=== PATIENT | female | born 1995 | race American Indian/Alaskan Native ===

== ENCOUNTER 2017-10-23 15:54 | Emergency (ER) | payer MEDICAID ==
[2017-10-23 16:26] LABS: Basophils % (Auto) 0.4 % (0.0-1.8); Eosinophils % (Auto) 0.2 % (0.0-4.3); Hematocrit 32.9 % (30.3-42.9); Hemoglobin 11.3 gm/dl (10.1-14.3); Lymphocytes # (Auto) 2.3 K/mm3 (1.2-5.4); Lymphocytes % (Auto) 25.7 % (13.4-35.0); Mean Corpuscular HGB Conc 35 % (30-34); Mean Corpuscular Hemoglobin 31 pg (28-32); Mean Corpuscular Volume 88 fl (79-97); Monocytes # (Auto) 0.6 K/mm3 (0.0-0.8); Monocytes % (Auto) 6.5 % (0.0-7.3); Platelet Count 263 K/mm3 (140-440); Red Blood Count 3.73 M/mm3 (3.65-5.03); Red Cell Distribution Width 13.8 % (13.2-15.2)
[2017-10-23 16:55] LABS: Bacteria,Urine 1+ /HPF (Negative); Bilirubin,Urine NEG (Negative); Blood,Urine LG (Negative); Color,Urine Yellow (Yellow); Protein,Urine <15 mg/dL mg/dL (Negative); Urobilinogen,Urine < 2.0 mg/dL (<2.0)
--- NOTE | 2017-10-23 17:00 | Emergency Department Report ---
ED General Adult HPI - General Chief complaint: Vaginal Bleeding Stated complaint: MOLAR Time Seen by Provider: 10/23/17 16:24 Source: patient, RN notes reviewed, old records reviewed Mode of arrival: Ambulatory Limitations: No Limitations - History of Present Illness Initial comments: This is a 21-year-old female who was not known to this provider previously. Her last menstrual period is August 13. She is 4, para 1. She reports an outpatient ultrasound in another hospital has demonstrated a molar . She presents to the ER with painless vaginal bleeding. She is using a few pads a day. She denies headache, neck pain, chest pain, abdominal pain, shortness of breath, obstructive/irritative urinary symptoms. Her bleeding is intermittent, painless, does not radiate anywhere, does not have exacerbating or relieving factors. -: Gradual Severity scale (0 -10): 0 Quality: other Consistency: other Improves with: other Worsens with: other Associated Symptoms: other. denies: confusion, chest pain, cough, diaphoresis, fever/chills, headaches, loss of appetite, malaise, nausea/vomiting, rash, seizure, shortness of breath, syncope, weakness - Related Data Previous Rx's Medication Instructions Recorded Last Taken Type Ibuprofen [Motrin] 600 mg PO Q8H PRN #60 tablet 01/12/15 Unknown Rx methOCARBAMOL [Robaxin TAB] 500 mg PO BID #10 tab 01/12/15 Unknown Rx traMADol [Ultram] 50 mg PO Q6HR PRN #14 tablet 01/12/15 Unknown Rx Allergies Allergy/AdvReac Type Severity Reaction Status Date / Time onions Allergy Rash Uncoded 11/23/13 18:32 ED Review of Systems ROS: Stated complaint: MOLAR Other details as noted in HPI Comment: All other systems reviewed and negative ED Past Medical Hx - Past Medical History Previous Medical History?: Yes Hx Asthma: Yes (child last issues was > 5 years ago) - Surgical History Past Surgical History?: Yes Additional Surgical History: hernia repair. right eye surgery - Social History Smoking Status: Never Smoker Substance Use Type: None - Medications Home Medications: Home Medications Medication Instructions Recorded Confirmed Last Taken Type Ibuprofen [Motrin] 600 mg PO Q8H PRN #60 tablet 01/12/15 Unknown Rx methOCARBAMOL [Robaxin TAB] 500 mg PO BID #10 tab 01/12/15 Unknown Rx traMADol [Ultram] 50 mg PO Q6HR PRN #14 tablet 01/12/15 Unknown Rx ED Physical Exam - General Limitations: No Limitations General appearance: alert, in no apparent distress - Head Head exam: Present: atraumatic, normocephalic - Eye Eye exam: Present: normal appearance, EOMI. Absent: nystagmus - ENT ENT exam: Present: normal exam, normal orophraynx, mucous membranes moist, normal external ear exam - Neck Neck exam: Present: normal inspection, full ROM. Absent: tenderness, meningismus - Respiratory Respiratory exam: Present: normal lung sounds bilaterally. Absent: respiratory distress - Cardiovascular Cardiovascular Exam: Present: regular rate, normal rhythm, normal heart sounds. Absent: bradycardia, tachycardia, irregular rhythm, systolic murmur, diastolic murmur, rubs, gallop - GI/Abdominal GI/Abdominal exam: Present: soft, normal bowel sounds. Absent: distended, tenderness, guarding, rebound, rigid, pulsatile mass - Extremities Exam Extremities exam: Present: normal inspection, full ROM, normal capillary refill , other (2+ pulses noted in the bilateral upper, lower extremities. Compartments soft. No long bony tenderness. The pelvis is stable.). Absent: tenderness, pedal edema, joint swelling, calf tenderness - Back Exam Back exam: Present: normal inspection, full ROM. Absent: tenderness, CVA tenderness (R), paraspinal tenderness, vertebral tenderness - Neurological Exam Neurological exam: Present: alert, oriented X3, CN II-XII intact, normal gait, other (Extraocular movements intact. Tongue midline. No facial droop. Facial sensation intact to light touch in the V1, V2, V3 distribution bilaterally. 5 and 5 strength in 4 extremities.. Sensation is intact to light touch in 4 extremities.). Absent: motor sensory deficit - Psychiatric Psychiatric exam: Present: normal affect, normal mood - Skin Skin exam: Present: warm, dry, intact, normal color. Absent: rash ED Course Vital Signs 10/23/17 10/23/17 10/23/17 16:00 16:45 18:47 Temperature 98.3 F Pulse Rate 96 H Respiratory 16 16 Rate Blood Pressure 123/80 Blood Pressure 126/76 [Left] O2 Sat by Pulse 100 100 Oximetry ED Medical Decision Making - Lab Data Result diagrams: 10/23/17 16:08 Vital Signs 10/23/17 10/23/17 10/23/17 16:00 16:45 18:47 Temperature 98.3 F Pulse Rate 96 H Respiratory 16 16 Rate Blood Pressure 123/80 Blood Pressure 126/76 [Left] O2 Sat by Pulse 100 100 Oximetry Lab Results 10/23/17 10/23/17 10/23/17 Range/Units 16:08 16:08 16:15 WBC 8.8 (4.5-11.0) K/mm3 RBC 3.73 (3.65-5.03) M/mm3 Hgb 11.3 (10.1-14.3) gm/dl Hct 32.9 (30.3-42.9) % MCV 88 (79-97) fl MCH 31 (28-32) pg MCHC 35 H (30-34) % RDW 13.8 (13.2-15.2) % Plt Count 263 (140-440) K/mm3 Lymph % (Auto) 25.7 (13.4-35.0) % [place] % (Auto) 6.5 (0.0-7.3) % Eos % (Auto) 0.2 (0.0-4.3) % Baso % (Auto) 0.4 (0.0-1.8) % Lymph # 2.3 (1.2-5.4) K/mm3 [place] # 0.6 (0.0-0.8) K/mm3 Eos # 0.0 (0.0-0.4) K/mm3 Baso # 0.0 (0.0-0.1) K/mm3 Seg Neutrophils % 67.2 (40.0-70.0) % Seg Neutrophils # 5.9 (1.8-7.7) K/mm3 HCG, Quant 516238 H (0-4) mIU/mL Urine Color Yellow (Yellow) Urine Turbidity Slightly-cloudy (Clear) Urine pH 7.0 (5.0-7.0) Ur Specific [place] 1.006 (1.003-1.030) Urine Protein <15 mg/dl (Negative) mg/dL Urine Glucose (UA) Neg (Negative) mg/dL Urine Ketones Neg (Negative) mg/dL Urine Blood Lg (Negative) Urine Nitrite Neg (Negative) Urine Bilirubin Neg (Negative) Urine Urobilinogen < 2.0 (<2.0) mg/dL Ur Leukocyte Esterase Lg (Negative) Urine WBC (Auto) 12.0 H (0.0-6.0) /HPF Urine RBC (Auto) 3.0 (0.0-6.0) /HPF U Epithel Cells (Auto) 7.0 (0-13.0) /HPF Urine Bacteria (Auto) 1+ (Negative) /HPF Blood Type Antibody Screen 10/23/17 Range/Units 16:18 WBC (4.5-11.0) K/mm3 RBC (3.65-5.03) M/mm3 Hgb (10.1-14.3) gm/dl Hct (30.3-42.9) % MCV (79-97) fl MCH (28-32) pg MCHC (30-34) % RDW (13.2-15.2) % Plt Count (140-440) K/mm3 Lymph % (Auto) (13.4-35.0) % [place] % (Auto) (0.0-7.3) % Eos % (Auto) (0.0-4.3) % Baso % (Auto) (0.0-1.8) % Lymph # (1.2-5.4) K/mm3 [place] # (0.0-0.8) K/mm3 Eos # (0.0-0.4) K/mm3 Baso # (0.0-0.1) K/mm3 Seg Neutrophils % (40.0-70.0) % Seg Neutrophils # (1.8-7.7) K/mm3 HCG, Quant (0-4) mIU/mL Urine Color (Yellow) Urine Turbidity (Clear) Urine pH (5.0-7.0) Ur Specific [place] (1.003-1.030) Urine Protein (Negative) mg/dL Urine Glucose (UA) (Negative) mg/dL Urine Ketones (Negative) mg/dL Urine Blood (Negative) Urine Nitrite (Negative) Urine Bilirubin (Negative) Urine Urobilinogen (<2.0) mg/dL Ur Leukocyte Esterase (Negative) Urine WBC (Auto) (0.0-6.0) /HPF Urine RBC (Auto) (0.0-6.0) /HPF U Epithel Cells (Auto) (0-13.0) /HPF Urine Bacteria (Auto) (Negative) /HPF Blood Type O POSITIVE Antibody Screen Negative - Radiology Data Radiology results: image reviewed interpreted by me: As per discussion with e commerce developer pre certification specialist, Dr. Ermelinda Alfredo, ultrasound was consistent with a 16 week molar . Secondary to technical issues, we are still waiting for formal radiology interpretation - Medical Decision Making Differential diagnosis, including but not limited to: Molar , ectopic , miscarriage Assessment and plan: 21-year-old female with reported outpatient sonographically confirmed molar . She is afebrile with reassuring vital signs and no abdominal tenderness, rebound or guarding. Her quantitative hCG is over 400,000, and the consulting PLASTIC AND RECONSTRUCTIVE SURGEON doctor, Dr. Alfredo, has personally reviewed the patient's ultrasound and indicates that is consistent with molar . His plan is to have the patient return on Thursday for direct admit for dilatation and curettage. The patient was observed in the ER for hours without clinical decompensation. She is going to follow-up on Thursday. Return precautions reviewed. Critical care attestation.: If time is entered above; I have spent that time in minutes in the direct care of this critically ill patient, excluding procedure time. ED Disposition Clinical Impression: Molar Disposition: DC-01 TO HOME OR SELFCARE Is pt being admited?: No Does the pt Need Aspirin: No Condition: Stable Instructions: Threatened Miscarriage (ED) Additional Instructions: Rest, and avoid heavy lifting. Avoid strenuous physical activities. Do not have sex. Return to the ER on Thursday, at 3:00 PM, presents yourself to ER registration, and tell them that you are here to be a direct admit under Dr. Alfredo's service for dilatation and curettage. Return to the ER right away with new pain, worsening pain, migration of pain, projectile vomiting, change in mental status, confusion, sudden bleeding, bleeding more than 2 pads soaked per hour, lightheadedness, loss of consciousness. Referrals: PRIMARY CARE, [Primary Care Provider] - 3-5 Days BETO ALFREDO MD [Staff Physician] - 3-5 Days
[2017-10-23 18:47] VITALS: BP 126/76
--- NOTE | 2017-10-23 19:03 | History and Physical Report ---
History of Present Illness Date of examination: 10/23/17 Chief complaint: Suspected Molar x 5 days History of present illness: 21-year-old who presents with oral history of possible molar . Essential history is patient was seen at [facility] on Thursday last week for vaginal bleeding and passing chunks of blood. Beta history G-tube was drawn and she was informed she might be miscarrying, asked to return 48 hours later. She returned again on Thursday and was informed that her beta hCG was still increase in, she was advised to follow-up with her primary care physician. She presented today from the clinic. Her beta hCGs is over 400,000 and ultrasound shows ~ 16 week size likely molar . She is spotting at this time and her hemoglobin and hematocrit is stable Past History Past Medical History: no pertinent history Past Surgical History: no surgical history TAKER OFF History: denies: cancer, chlamydia, gonorrhea, hepatitis B, hepatitis C, herpes, HIV, syphilis, trichomonas Social history: single, full code. denies: smoking, IV drug use Medications and Allergies Allergies Allergy/AdvReac Type Severity Reaction Status Date / Time onions Allergy Rash Uncoded 11/23/13 18:32 Home Medications Medication Instructions Recorded Confirmed Last Taken Type Ibuprofen [Motrin] 600 mg PO Q8H PRN #60 tablet 01/12/15 Unknown Rx methOCARBAMOL [Robaxin TAB] 500 mg PO BID #10 tab 01/12/15 Unknown Rx traMADol [Ultram] 50 mg PO Q6HR PRN #14 tablet 01/12/15 Unknown Rx Review of Systems Constitutional: no fever, no chills, no fatigue Eyes: no blurred vision, no diplopia, no discharge Cardiovascular: no chest pain, no orthopnea, no palpitations, no syncope, no lightheadedness, no shortness of breath, no dyspnea on exertion, no paroxysmal nocturnal dyspnea, no high blood pressure Respiratory: no cough, no shortness of breath, no dyspnea on exertion Gastrointestinal: no abdominal pain, no nausea, no vomiting Genitourinary: vaginal bleeding (spotting), no vaginal discharge - Vital Signs Vital signs: Vital Signs Temp Pulse Resp BP Pulse Ox 98.3 F 96 H 16 123/80 100 10/23/17 16:00 10/23/17 16:00 10/23/17 16:00 10/23/17 16:00 10/23/17 16:00 Temp Pulse Resp BP Pulse Ox 98.3 F 96 H 16 126/76 100 10/23/17 16:00 10/23/17 16:00 10/23/17 16:45 10/23/17 18:47 10/23/17 16:45 - Physical Exam Abdomen: Positive: normal appearance, soft. Negative: distention, tenderness, guarding, rigidity Genitourinary (Female): Positive: normal external genitalia Results Result Diagrams: 10/23/17 16:08 Abnormal lab results 10/23/17 10/23/17 10/23/17 Range/Units 16:08 16:08 16:15 MCHC 35 H (30-34) % HCG, Quant [id number] H (0-4) mIU/mL Urine WBC (Auto) 12.0 H (0.0-6.0) /HPF All other labs normal. Assessment and Plan A: 21-year-old with ~ 16 wk size molar -Stable P: -Due to vascular nature of molar , feel preoperative placement of arterial stents/balloons is appropriate. I discussed with Dr. Ackerman of interventional radiology, plan is to admit the patient Thursday night. She will then have procedure performed in the vascular lab and then taken to the OR for D &C -Discussed above in detail with the patient -Discussed need for follow-up, she is aware of need to follow her labs weekly for 3 weeks after it is negative, then monthly for about 6 months. -Discussed need to return to the ER [facility] if heavy bleeding should occur - Patient Problems (1) Molar Current Visit: Yes Status: Acute
--- NOTE | 2017-10-23 20:33 | Ultrasound Report ---
FINAL REPORT PROCEDURE: Transabdominal obstetrical ultrasound. TECHNIQUE: Real-time transabdominal sonography of the uterus, placenta, amniotic fluid, adnexa, and fetus was performed with image documentation. Measurements were obtained to determine age/size. M-mode Doppler was used to document heartbeat. CPT 96682 HISTORY: , previous vaginal bleeding. COMPARISON: No prior studies are available for comparison. FINDINGS: The uterus measures 16.7 centimeters x 9.3 centimeters x 11.0 centimeters. The myometrium appears thin. The endometrium is filled with a solid mass with numerous cystic areas. The solid mass measures 7.5 centimeters in thickness. There are no signs of a normal gestational sac. The findings are consistent with a hydatidiform mole. Given the apparent thinness of the myometrium, an invasive mole is not excluded. There is a tiny amount of fluid within the endocervical canal. The right ovary appears normal in size and demonstrates normal color flow. There is a small hypoechoic mass in the right ovary measuring 1.7 centimeters in maximum dimension. The left ovary appears normal. There is normal color flow in the left ovary. IMPRESSION: Hydatidiform mole. Invasive molar not excluded. Probable small right ovarian corpus luteum.
--- NOTE | 2017-10-23 20:36 | Ultrasound Report ---
FINAL REPORT PROCEDURE: Transvaginal obstetrical ultrasound. TECHNIQUE: Real-time transvaginal sonography of the uterus, placenta, amniotic fluid, adnexa, and fetus was performed with image documentation. Measurements were obtained to determine age/size. M-mode Doppler was used to document heartbeat. CPT 68448 HISTORY: , vaginal bleeding. COMPARISON: No prior studies are available for comparison. FINDINGS: The myometrium echogenicity appears uniform. The myometrium thickness appears thin however. There is a solid complex mass within the endometrial cavity. This mass is predominantly solid tissue but contains small cystic areas. There is no evidence of an intrauterine gestational sac. 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 An invasive mole is possible. There is a small amount of fluid in the endocervical canal. Both ovaries appear normal in size. There is a small complex cyst in the right ovary consistent with a corpus luteum. There is no fluid in the cul-de-sac. IMPRESSION: Gestational trophoblastic disease as described.
== END 2017-10-23 20:30 | disposition home or self-care (01) ==
LOC: ED 15:54
DX: O02.0 Blighted ovum and nonhydatidiform mole (principal); J45.909 Unspecified asthma, uncomplicated; Z3A.16 16 weeks gestation of pregnancy
CPT/HCPCS: 36415; 76801; 76817; 81001; 84702; 85025; 86850; 86900; 86901

== ENCOUNTER 2017-10-23 19:23 | Observation (INO) | payer MEDICAID ==
[2017-10-23] MEDS ORDERED: MOTRIN PO PRN (19:48)
[2017-10-23] MEDS ORDERED: SODIUM CHLORIDE FLUSH SYRINGE 10 ML IV PRN (19:48)
[2017-10-23] MEDS ORDERED: ZOFRAN IV PRN (19:48)
[2017-10-23] MEDS ORDERED: TYLENOL PO PRN (19:48)
[2017-10-23] MEDS ORDERED: PHENERGAN PR PRN (19:48)
[2017-10-23] MEDS ORDERED: NACL 0.9% 500 ML 500 ML IV SCH (19:54)
[2017-10-23] MEDS ORDERED: NACL 0.9% 1000 ML 1,000 ML IV SCH (20:00)
[2017-10-23] MEDS ORDERED: SENOKOT PO SCH (22:00)
[2017-10-23] MEDS ORDERED: SODIUM CHLORIDE FLUSH SYRINGE 10 ML IV SCH (22:00)
[2017-10-26] MEDS ORDERED: CYTOTEC PR ONE
[2017-10-26] MEDS ORDERED: ZEMURON IV ONE (09:11)
[2017-10-26] MEDS ORDERED: XYLOCAINE MPF 2% ONE (09:11)
[2017-10-26] MEDS ORDERED: QUELICIN ONE (09:11)
[2017-10-26] MEDS ORDERED: DIPRIVAN 10 MG/ML IV ONE (09:12)
[2017-10-26] MEDS ORDERED: DILAUDID ONE (09:12)
--- NOTE | 2017-10-26 09:22 | History and Physical Report ---
History of Present Illness Date of examination: 10/26/17 Date of admission: 10/25/17 16:49 Chief complaint: scheduled surgery for suspected molar History of present illness: 21yo 11wks 5/7days presents for management of suspected molar with suction D&C. Her uterus is enlarged at 16cm and betaHCG >43K. She was previously followed by Emiliana Telles and Dr. Diaz, [facility]. The recommendation to preoperatively undergoe occlusion of bilateral internal illiac arteries was made and Dr. Ackerman will perform procedure. Today she has no complaints. She was admitted overnight and is NPO. She has been type and cross matched for 2 units of pack red blood cells. She has been consented for suction D&C and all of her questions have been answered. She is aware of the risk of invasive carcinoma and need for close follow-up. Past History Past Medical History: other (missed ) Past Surgical History: other (dental surgery, D&C) Family/Genetic History: none Social history: single - Obstetrical History Expected Date of Delivery: 05/12/18 Actual Gestation: 11 Week(s) 5 Day(s) : 3 Hx # Term Pregnancies: 1 Medications and Allergies Allergies Allergy/AdvReac Type Severity Reaction Status Date / Time onions Allergy Rash Uncoded 11/23/13 18:32 Home Medications Medication Instructions Recorded Confirmed Last Taken Type Ibuprofen [Motrin] 600 mg PO Q8H PRN #60 tablet 01/12/15 10/25/17 Unknown Rx methOCARBAMOL [Robaxin TAB] 500 mg PO BID #10 tab 01/12/15 10/25/17 Unknown Rx traMADol [Ultram] 50 mg PO Q6HR PRN #14 tablet 01/12/15 10/25/17 Unknown Rx Active Meds: Active Medications Acetaminophen (Tylenol) 650 mg PO Q4H PRN PRN Reason: Pain MILD(1-3)/Fever >100.5/COOK Sodium Chloride (Nacl 0.9% 1000 Ml) 1,000 mls @ 125 mls/hr IV DIRECT LINDSEY Ibuprofen (Motrin) 600 mg PO Q6H PRN PRN Reason: Pain, Mild (1-3) Ondansetron HCl (Zofran) 4 mg IV Q8H PRN PRN Reason: Nausea And Vomiting Promethazine HCl (Phenergan) 25 mg OK Q6H PRN PRN Reason: N/V IF NPO AND NO IV ACCESS Senna (Senokot) 8.6 mg PO Q12HR LINDSEY Sodium Chloride (Sodium Chloride Flush Syringe 10 Ml) 10 ml IV BID LINDSEY Sodium Chloride (Sodium Chloride Flush Syringe 10 Ml) 10 ml IV PRN PRN PRN Reason: LINE FLUSH - Vital Signs Vital signs: Vital Signs Temp Pulse Resp BP Pulse Ox 98.5 F 82 18 130/77 100 10/25/17 19:11 10/25/17 19:11 10/25/17 19:11 10/25/17 19:11 10/25/17 19:11 Temp Pulse Resp BP Pulse Ox 98.9 F 79 16 114/60 100 10/26/17 04:55 10/26/17 04:55 10/26/17 04:55 10/26/17 04:55 10/25/17 19:11 Results Abnormal lab results 10/23/17 Range/Units 23:10 Crossmatch See Detail All other labs normal. Assessment and Plan - Patient Problems (1) Molar Current Visit: No Status: Acute Plan to address problem: 1. Routine pre-op labs. 2. Type and crossed for 2units packed red blood cells 3. Doxycycline for infection prophylaxis. 4. SCDs for DVT prophylaxis. 5. Plan to proceed to Suction D&C. Risks including but not limited to risk of bleeding, infection, uterine perforation, need for blood transfusion, exploratory laparotomy or hysterectomy. The patient was made aware a hysterectomy would render her unable to bear future children. All questions were answered and informed consent signed.
--- NOTE | 2017-10-26 09:28 | Anesthesia Consultation ---
<BRIDGETTE MEIER - Last Filed: 10/26/17 09:26> Anesthesia Consult and Med Hx Date of service: 10/26/17 (After balloon of bilateral iliacs in IR) - Airway Anesthetic Teeth Evaluation: Good ROM Head & Neck: Adequate Mental/Hyoid Distance: Adequate Mallampati Class: Class I Intubation Access Assessment: Probably Good - Pulmonary Exam CTA: Yes - Cardiac Exam Cardiac Exam: RRR - Pre-Operative Health Status ASA Pre-Surgery Classification: ASA1, ASA2 Proposed Anesthetic Plan: General - Pulmonary Hx Smoking: Yes Hx Asthma: Yes (child last issues was > 5 years ago) COPD: No Hx Pneumonia: No - Cardiovascular System Hx Hypertension: No Hx Cardia Arrhythmia: No - Central Nervous System Hx Neuromuscular Disorder: No - Gastrointestinal Hx Gastroesophageal Reflux Disease: No - Endocrine Hx End Stage Renal Disease: No Hx Liver Disease: No - Hematic Hx Sickle Cell Disease: No - Other Systems Hx Alcohol Use: No Hx Substance Use: No - Additional Comments Anesthesia Medical History Comments: No GAC, No FHAC <CLIFFORD BARILLAS - Last Filed: 10/26/17 09:39> Anesthesia Consult and Med Hx Date of service: 10/26/17 (after internal iliac artery occlusion in IR) - Pre-Operative Health Status ASA Pre-Surgery Classification: ASA2 - Pulmonary Hx Asthma: Yes (childhood, last issue was > 5 years ago) - Additional Comments Anesthesia Medical History Comments: Presenting with molar preganancy (uterine size 16wk). Plan for preop internal iliac artery embolization in IR. 2 units pRBCs available.
--- NOTE | 2017-10-26 09:37 | Anesthesia Day of Surgery ---
Anesthesia Day of Surgery - Day of Surgery Patient Examined: Yes Patient H&P Reviewed: Yes Patient is NPO: Yes
[2017-10-26] MEDS ORDERED: DILAUDID IV PRN (09:39)
[2017-10-26] MEDS ORDERED: HEPARIN 10,000 UNITS/10 ML ONE (10:00)
[2017-10-26] MEDS ORDERED: METHERGINE IM ONE ×3 (10:00→10:47)
[2017-10-26] MEDS ORDERED: NEO SYNEPHRINE/NS Syringe(OR USE) IV ONE (10:00)
[2017-10-26] MEDS ORDERED: HEPARIN/NS 5000 UNIT/500ML(CATH LAB) 1,000 ML IR ONE (10:00)
[2017-10-26] MEDS ORDERED: SUBLIMAZE ONE ×2 (10:01→11:52)
[2017-10-26] MEDS ORDERED: VERSED ONE (10:01)
[2017-10-26] MEDS ORDERED: CALAN ONE (10:02)
[2017-10-26] MEDS ORDERED: NITROGLYCERIN SYRINGE 0 ML ONE (10:02)
[2017-10-26] MEDS ORDERED: NACL 0.9% 1000 ML 4,000 ML ONE (10:15)
[2017-10-26] MEDS ORDERED: NACL 0.9% 500 ML 500 ML ONE (10:15)
[2017-10-26] MEDS: XYLOCAINE 2% INFILTRATI ONE ×2 (10:30→10:34)
[2017-10-26] MEDS ORDERED: CYTOTEC PR NR (11:00)
[2017-10-26] MEDS ORDERED: METHERGINE IM NR (11:00)
[2017-10-26] MEDS ORDERED: DECADRON ONE (11:52)
[2017-10-26] MEDS ORDERED: ZOFRAN ONE (11:53)
[2017-10-26] MEDS ORDERED: DOXYCYCLINE HYCLATE 200 MG in NACL 0.9% 250ML 250 ML IV ONE (12:00)
[2017-10-26] MEDS ORDERED: NARCAN 0.4 MG/1 ML IV PRN (12:38)
[2017-10-26] MEDS ORDERED: PERCOCET 5/325 PO PRN (12:38)
--- NOTE | 2017-10-26 12:55 | Operative Report ---
Operative Report Operative Report: PREOP Diagnosis 1. Suspected molar 2. 16 week uterus 3. Chronic anemia Postop Diagnosis 1. Suspected molar 2. 16 week uterus 3. Chronic anemia Procedure: 1. Suction D&C 2. Intra-op pelvic ultrasound Findings 1. Anteverted 16 week uterus 2. Ultrasound revealed Intrauterine products with no pole present 3. Uterus with visible endometrial stripe at close of case. Surgeon 1. Brittayn Galarza MD Anesthesia: 1. General I/O: EBL: 1100ml (3 suction cannisters and 200 ml in sterile bag UOP 20ml Specimens removed: 1. Products of conception, suspected molar Complications: none Disposition: Patient taken to recovery room in stable condition INDICATIONS: The patient is a 21yo 11weeks 5/7 days by LMP with 16 weeks uterus and suspected molar on ultrasound. A detailed discussion was had with patient concerning the need for uterine evacuation and the potential for an invasive mole diagnosed post-operativeily. The patient was consented and the risks including but not limited to bleeding, infection, injury to surrounding organs, uterine perforation, need for blood transfusion or hysterectomy were discussed and informed consent signed. All questions were answered. A pre- operative catherization of the internal iliac arteries was performed by intervention radiology in anticipation of increased uterine bleeding due to the size of the uterus and molar . PROCEDURE: The patient was transferred from the cath lab radiology technician to OR. She wore SCDs for DVT prophylaxis. The patient was prepped and draped in the usual fashion and an additional time out was done. She received Doxycycline for infection prophylaxis. Adequate anesthesia was achieved via general anesthesia. A anthony catheter was placed noting a small amount of clear urine. A sterile speculum was placed per vagina and the anterior lip of the cervix was grasped with a single-toothed tenaculum. Lopez dilators were used to dilate the uterus up to 41 Frisian. A #14 curette was unable to pass intracervically therefore a #12 curette was passed. Multiple passes of the suction curette under ultrasound guidance were passed and tissue collected. A #3 sharp curette was used to do a sharp curette and all quadrants were noted to be gritty. Tenaculum was removed from the cervix, speculum removed and bimanual exam performed. Uterus was noted to be firm. Cytotec 1000mcg was placed per rectum and Methergine 0.2mg IM was administered. Dr. Dick then arrived in the OR to remove the bilateral stents. The patient is to remain supine for two hours post-op. All counts were correct. Anthony catheter was removed. I was present and scrubbed for the entire procedure. The patient tolerated the procedure well and was taken to the recovery room.
--- NOTE | 2017-10-26 13:07 | Ultrasound Report ---
ULTRASOUND-GUIDED INTRAOPERATIVE History: Molar , guidance for D&C. Findings: 12 transabdominal grayscale ultrasound images are presented during D&C of a molar by FARM HELPER. Please correlate with the procedural report as needed. Impression: Successful ultrasound guidance for D&C for molar by FARM HELPER.
[2017-10-26 13:49] LABS: Hematocrit 28.1 % (30.3-42.9); Hemoglobin 9.5 gm/dl (10.1-14.3); Mean Corpuscular HGB Conc 34 % (30-34); Mean Corpuscular Hemoglobin 30 pg (28-32); Mean Corpuscular Volume 89 fl (79-97); Platelet Count 224 K/mm3 (140-440); Red Blood Count 3.15 M/mm3 (3.65-5.03); Red Cell Distribution Width 13.6 % (13.2-15.2)
--- NOTE | 2017-10-26 14:50 | Post Anesthesia Evaluation ---
- Post Anesthesia Evaluation Patient Participated: Yes Airway Patent: Yes Stable Respiratory Function: Yes Nausea/Vomiting: No Temp > 96.8F: Yes Pain Manageable: Yes Adequeate Hydration: Yes Anesthesia Complications: No Other Comments: Post-op Hb 9.5. HD stable at preop baseline.
--- NOTE | 2017-10-26 15:26 | Operative Report ---
Operative Report Operative Report: Exam: Ultrasound and fluoroscopic guided placement of bilateral iliac artery occlusion balloons Clinical indication: Patient with a history of a molar and a planned D &C Date: 10/26/2017 Procedure: Following an excellent addition of the risks, benefits and alternatives; written informed consent was obtained. The patient was brought the angiographic suite and placed in supine position on the examination table. Initial ultrasound evaluation of her right groin demonstrated a patent right common femoral artery. Initial ultrasound of the left groin demonstrated a patent left common femoral artery. The patient's bilateral groins were prepped and draped in the usual sterile fashion. 1% lidocaine was used for anesthesia. Under ultrasound guidance, the right common femoral artery was cannulated with a 7 cm 21-gauge needle. A 0.018 guidewire was advanced centrally. The needle was removed and a micro-sheath placed. The 0.018 guidewire was exchanged for a 0.035 guidewire and the micro-sheath exchanged for a 6 [place] vascular sheath. Access to the left common femoral artery was obtained in a similar fashion and an additional 6 [place] sheath placed on the left. Right: An Omni flush catheter was advanced over the guidewire to the distal abdominal aorta. Angiography was performed to demonstrate the origin of the common iliac arteries bilaterally. Using oblique imaging, the origin of the left internal iliac artery was identified. The uterine artery was also identified. The bifurcation was crossed using the Omni flush catheter and additional imaging obtained in the left common iliac artery. The guidewire was advanced into the internal iliac artery and the Omni flush catheter exchanged for a vertebral catheter. Together the vertebral catheter and guidewire were advanced into the lateral sacral artery. The vertebral catheter was removed. A 5.5 [place] Licea balloon catheter was then advanced over the guidewire and positioned just distal to the origin of the internal iliac artery proximal to the branching of anterior posterior divisions. The balloon was inflated using 1 /2 mL of saline and contrast and had good wall opposition. The balloon was then deflated. Left: The Omni flush catheter was advanced over the guidewire to the distal abdominal aorta and the bifurcation crossed using the guidewire and catheter. Angiography was performed in the right common iliac artery. Using oblique imaging, the origin of the right internal iliac artery was identified. The guidewire was advanced into the internal iliac artery and the Omni flush catheter exchanged for a vertebral catheter. Together the vertebral catheter and guidewire were advanced into the superior gluteal artery. The vertebral catheter was removed. A 5.5 [place] Licea balloon catheter was then advanced over the guidewire and positioned just distal to the origin of the internal iliac artery but proximal to the bifurcation of anterior posterior divisions. A total of 1 mL was used to insufflated to balloon using accommodation of saline and contrast and had good wall opposition. The balloon was then deflated. At this point, sterile saline was placed through bilateral sheaths and bilateral balloons using pressure bags. Sterile dressings were then applied bilaterally. The patient was then taken to the operating room. See operative report for D&C At the conclusion of the procedure, I rejoined the patient in the operating room. Guidewires were again advanced through the Licea catheters and Licea catheters and she's were removed. Hemostasis was achieved in bilateral common femoral arteries using Angio-Seal arterial closure. Sterile dressings were then applied. The patient tolerated the procedure well. There were no immediate post procedure complications. Conscious sedation was performed under the guidance of radiologic nursing. Continuous cardiopulmonary monitoring was utilized. Impression: 1) Ultrasound and fluoroscopic guided placement of Mary occlusion balloon in the left internal iliac artery. 2) Ultrasound and fluoroscopic guided placement of Mary occlusion balloon in the right internal iliac artery
--- NOTE | 2017-10-26 19:24 | Event Note ---
Patient doing well post-op. She's voided x 1. Lying in bed with boyfriend, laughing and watching television. She states pain medicine is working but wears off after 2 hours. She has received Tylenol PO. She is tolerating PO, clear liquids. Post-op H/H 11/27. She has no vaginal bleeding. She will be discharged home with Ibuprofen, Iron and Percocet. Ibuprofen and Iron were called into [facility] directly.
--- NOTE | 2017-10-26 19:26 | Discharge Summary ---
Providers - Providers Date of Admission: 10/25/17 16:49 Date of discharge: 10/26/17 Attending physician: BETO ALFREDO 10/25/17 19:00 Consult to Physician [CONS] Routine Comment: Consulting Provider: HUNTER DIXON Physician Instructions: Reason For Exam: molar preg Primary care physician: [facility] Hospitalization Reason for admission: other (molar planned surgery) Procedure: other (Ultrasound and fluoroscopic guided placement of bilateral iliac artery occlusion balloons, Suction D&C) Procedure details: EBL 1100ml Bleeding well controlled. Internal iliac stents removed in operating room. Discharge diagnosis: other (molar ) Hospital course: 21yo with 16 wk molar underwent 2 procedures, Ultrasound and fluoroscopic guided placement of bilateral iliac artery occlusion balloons and Suction D&C. Post-op patient doing well. No signficant vaginal bleeding, pain well controlled. She will be discharged home on iron for anemia. Post-op betaHCG drawn and patient will get beta HCG in office 1 week. Condition at discharge: Stable Disposition: DC-[id number] TO HOME OR SELFCARE - Discharge Diagnoses (1) Molar Status: Acute Comment: s/p suction D&c - doing well post-op (2) Anemia associated with acute blood loss Status: Acute Comment: Asymptomatic - will f/u with outpatient iron supplementation. Plan - Discharge Medications Prescriptions: Ferrous Sulfate [Feosol 325 MG tab] 325 mg PO BID 90 Days #60 tablet HYDROcodone/ACETAMINOPHEN [Hydrocodone-Acetamin 5-325 mg] 1 each PO Q6H PRN 15 Days #30 tablet PRN Reason: Pain , Severe (7-10) - Provider Discharge Summary Activity: no sex for 6 weeks, no heavy lifting 4 weeks, other Diet: routine Additional instructions: [] Smoking cessation referral if applicable(refer to patient education folder for contact #) [] Refer to [facility] Booklet Call your doctor immediately for: * Fever > 100.5 * Heavy vaginal bleeding ( >1 pad per hour) * Severe persistent headache * Shortness of breath * Reddened, hot, painful area to leg or breast * NO SEXUAL INTERCOURSE. NOTHING IN VAGINA FOR 6 WEEKS - Follow up plan Follow up: PRIMARY CARE, [Primary Care Provider] - 7 Days Forms: [facility] Discharge Summary
[2017-10-26 20:37] VITALS: BP 130/55
== END 2017-10-26 20:20 | disposition home or self-care (01) ==
LOC: 3A 19:23 → UNDOADMOB 19:23 → OB 10-25 16:49
PROVIDERS: ADMIT Obstetrics & Gynecology Gynecology; ATTEND Obstetrics & Gynecology Gynecology
DX: O02.0 Blighted ovum and nonhydatidiform mole (principal); O99.011 Anemia complicating pregnancy, first trimester; D62 Acute posthemorrhagic anemia; D53.9 Nutritional anemia, unspecified; O99.511 Diseases of the respiratory system complicating pregnancy, first trimester; J45.909 Unspecified asthma, uncomplicated; O99.331 Smoking (tobacco) complicating pregnancy, first trimester; F17.200 Nicotine dependence, unspecified, uncomplicated; Z3A.11 11 weeks gestation of pregnancy
CPT/HCPCS: 36415; 37220; 59820; 75736; 84702; 85027; 86850; 86900; 86901; 86920; 88305; 88342; C1751; C1757; C1760; C1769; C1887; C1894; G0378; G0379; J0330; J1100; J1170; J1644; J2210; J2250; J2370; J2405; J2704; J3010; J7030; J7040; J7050; 37242; 76998; Q9967